=== PATIENT | female | born 1950 | race Caucasian/White ===

== ENCOUNTER → 2017-02-23 | Outpatient (CLI) | payer MEDICARE, BC ==
[~2017-02-23] MED LIST: AMIT25TA2 PO; ANTIANXIETY MED; AVAP150T PO; CALCCHW12 PO; CLAR5CHW PO; MULTIVIT PO; SERT25TA PO; SUMA125TA PO; SYNT75TA PO; ZOMIG; amitriptyline
--- NOTE | 2017-02-23 14:02 | REPMRS ---
Patient History The patient states she had a clinical breast exam in 01/2017. Patient is postmenopausal. Family history of colorectal cancer in father at age 50 or over, breast cancer in maternal aunt at age 50 or over, colorectal cancer in maternal grandmother at age 50 or over, and breast cancer in maternal cousin under age 50. Digital Woman Screen Mammo: February 23, 2017 - Exam #: [id number] Bilateral CC and MLO view(s) were taken. Technologist: Negrita Gil, Technologist Prior study comparison: February 12, 2015, digital woman screen mammo performed at [facility]. August 24, 2012, bilateral digital mammo screening bilat, performed at [facility]. FINDINGS: There are scattered fibroglandular densities. There has been no change in the appearance of the mammogram from the prior studies. There is a mild amount of residual fibroglandular tissue which is fairly symmetric. There is no interval development of dominant mass, architectural distortion, or clustered microcalcification suggestive of malignancy. ASSESSMENT: BI-RADS/ACR category 1 mammogram. Negative. Recommendation Routine screening mammogram in 1 year (for women over age 40). This mammogram was interpreted with the aid of an FDA-approved computer-aided dectection system. Electronically Signed By: Ervin Morocho MD 02/23/17 [id number]
== END ==
LOC: M WHC 12:58
PROVIDERS: ATTEND Nurse Practitioner Family
DX: Z12.31 Encounter for screening mammogram for malignant neoplasm of breast (principal)

== ENCOUNTER → 2017-10-17 | Outpatient (CLI) | payer MEDICARE, BC ==
--- NOTE | 2017-10-17 12:42 | REP ---
PA and lateral chest: Comparison is 01/17/2016. There are small stable parenchymal scar in the left costophrenic angle, unchanged. The lung byrnes otherwise clear. Cardiac size is normal. The pato, mediastinum, bony thorax are unchanged and unremarkable for patient age. Impression: No acute cardiopulmonary findings. Small stable parenchymal scars in the left costophrenic angle. Signed by Ervin العراقي MD 10/17/2017 12:34 P
--- NOTE | 2017-10-17 12:42 | REP ---
Left clavicle two views : There is no fracture or dislocation. Mineralization and joint spaces are normal. There are no calcifications or foreign bodies. Impression: Negative left clavicle . Signed by Ervin العراقي MD 10/17/2017 12:34 P
[2017-10-17 18:10] LABS: BASO # 0.1 10^3/uL (0.0-0.2); BASO % 0.9 % (0.0-1.0); EOS # 0.1 10^3/uL (0.0-0.50); EOS % 1.5 % (0.0-3.0); IMMATURE GRANULOCYTE % 0.2 % (0-0); LYMPH # 2.1 10^3/uL (1.5-4.5); MEAN CORPUSCULAR HEMOGLOBIN 33.1 pg (27.0-33.0); MEAN CORPUSCULAR HGB CONC 33.3 g/dl (32.0-36.5); MEAN CORPUSCULAR VOLUME 99.3 fl (80.0-96.0); MONO # 0.6 10^3/uL (0.0-0.8); MONO % 10.4 % (0.0-5.0); NEUTROPHILS # 3.1 10^3/uL (1.8-7.7); PLATELET COUNT, AUTOMATED 291 10^3/uL (150-450); RED CELL DISTRIBUTION WIDTH 12.1 % (11.5-14.5); WHITE BLOOD COUNT 5.9 10^3/uL (4.0-10.0)
[2017-10-17 18:52] LABS: ERYTHROCYTE SEDIMENTATION RATE 7 mm/hr (0-30)
== END ==
LOC: M WUC 11:39
PROVIDERS: ATTEND Physician Assistant
DX: M25.512 Pain in left shoulder (principal); R07.1 Chest pain on breathing

== ENCOUNTER → 2018-06-24 | Outpatient (CLI) | payer MEDICARE, BC | LOC: M WHC 10:33 | DX: Z12.31 Encounter for screening mammogram for malignant neoplasm of breast (principal); Z78.0 Asymptomatic menopausal state; Z80.0 Family history of malignant neoplasm of digestive organs; Z12.4 Encounter for screening for malignant neoplasm of cervix; N95.2 Postmenopausal atrophic vaginitis | CPT/HCPCS: 77067; G0123 ==

== ENCOUNTER → 2018-06-24 | Outpatient (REF) | payer MEDICARE, BC | LOC: M SFHCWAGY 10:55 | DX: Z12.4 Encounter for screening for malignant neoplasm of cervix (principal); N95.2 Postmenopausal atrophic vaginitis | CPT/HCPCS: G0123 ==

== ENCOUNTER 2018-06-29 07:45 | Emergency (ER) | payer MEDICARE, BC | END 2018-06-29 10:00 | disposition home or self-care (01) | LOC: M ED 07:45 | DX: M25.522 Pain in left elbow (principal); M85.832 Other specified disorders of bone density and structure, left forearm; W01.0XXA Fall on same level from slipping, tripping and stumbling without subsequent striking against object, initial encounter; Y92.098 Other place in other non-institutional residence as the place of occurrence of the external cause; I10 Essential (primary) hypertension; E78.5 Hyperlipidemia, unspecified; E03.9 Hypothyroidism, unspecified; F41.9 Anxiety disorder, unspecified; F32.9 Major depressive disorder, single episode, unspecified; G43.909 Migraine, unspecified, not intractable, without status migrainosus; Z88.8 Allergy status to other drugs, medicaments and biological substances; Z88.5 Allergy status to narcotic agent; Z88.0 Allergy status to penicillin; Z79.899 Other long term (current) drug therapy | CPT/HCPCS: 73030 ==

== ENCOUNTER → 2019-06-26 | Outpatient (CLI) | payer MEDICARE, BC ==
[~2019-06-26] MED LIST changes: +ATOR1TAB19; +DICL75TA PO; +IBUP-354; +LOSA50TA88 PO; -SERT25TA PO; +SERT25TA85 PO; +SUMA20SP
--- NOTE | 2019-06-27 12:11 | REP ---
BILATERAL SCREENING DIGITAL MAMMOGRAM WITH 3D TOMOSYNTHESIS: There are no palpable abnormalities or other breast complaints. The the patient states she had a clinical breast examination June,. The the patient states she performs self-breast examinations zero times per year. The Tyrer-Cuzick Score is: 5.9% . Comparison is 02/12/2015. There are scattered areas of fibroglandular density. There is no dominant mass, micro calcific cluster or architectural distortion that would indicate malignancy. There are no additional findings on 3D tomosynthesiss. There is no change from the prior study. Impression: BIRADS/ACR category 1 mammogram. Negative. Recommendation: Routine annual screening mammography. This mammogram was interpreted with the aid of a FDA approved computer-aided detection system. A. Negative mammogram reports should not delay biopsy if a dominant or clinically suspicious mass is present. B. Not all breast cancers are identified by mammography or tomosynthesis. C. Adenosis and dense breasts may obscure an underlying neoplasm. Patient letter M1. Electronically Signed by Ervin العراقي MD 06/26/2019 11:29 A
== END ==
LOC: M WHC 10:14
PROVIDERS: ATTEND Nurse Practitioner Family
DX: Z12.31 Encounter for screening mammogram for malignant neoplasm of breast (principal)
CPT/HCPCS: 77063; 77067; G0463

== ENCOUNTER → 2019-07-17 | Outpatient (CLI) | payer MEDICARE, BC ==
--- NOTE | 2019-07-18 14:12 | DEXA ---
AP SPINE L1 - L4 0.898 -2.3 -0.7 LT FEMUR TOTAL 0.696 -2.5 -1.0 LT NECK 0.649 -2.8 -1.1 RT FEMUR TOTAL 0.683 -2.6 -1.1 RT NECK 0.627 -3.0 -1.2 TOTAL BODY TOTAL OTHER COMMENTS: There is low bone density of the spine. There is osteoporosis of the hips. The decreased density of the spine does represent a significant change. The decreased density of the left hip does represent a significant change. The decreased density of the right hip does represent a significant change. The density of the spine has decreased 14.0% since the initial exam on 03/15/2003. The spine density has decreased 13.0% since the most recent exam on 08/15/2007. The density of the left hip has decreased 14.6% since the initial exam on 03/15/2003. The density of the left hip has decreased 15.3% since the most recent exam on 08/15/2007. The density of the right hip has decreased 16.6% since the initial exam on 03/15/2003. The density of the right hip has decreased 16.0% since the most recent exam on 08/15/2007. FOLLOW-UP: Recommendation for the next bone density exam: 2 years. SHAHLA
== END ==
LOC: M WHC 09:39
PROVIDERS: ATTEND Nurse Practitioner Family
DX: M81.0 Age-related osteoporosis without current pathological fracture (principal)

== ENCOUNTER 2020-05-28 08:35 | Day surgery (SDC) | payer MEDICARE, BC ==
[~2020-05-28] VITALS: Ht 147.3 cm; Wt 47.6 kg
[~2020-05-28 08:35] MED LIST changes: +ALIG4CAP PO; +AMIT75TA PO; +ASPI81TA86 PO; -ATOR1TAB19; +ATOR1TAB19 PO; +BIOT1CAP2 PO; +LEVO75TA4 PO; +MULTCAP PO; +RA B1TAB8 PO; +SUMA25TA3 PO
[2020-05-28] MEDS ORDERED: propofoL 200 MG/20 ML VIAL As Ordered ONE (09:30)
[2020-05-28] MEDS ORDERED: LIDOCAINE 2% 100MG/5ML SDV (FOR ANES.) As Ordered ONE (09:30)
--- NOTE | 2020-07-10 11:31 | ROOR ---
Patient Name: Angelita Goodman Procedure Date: 05/28/2020 9:13 AM Date of : 1950 Age: 69 Room: [facility] Gender: Female Note Status: Finalized Procedure: Colonoscopy Indications: High risk colon cancer surveillance: Personal history of colonic polyps, Family history of colon cancer Providers: Cam TSE MD Referring MD: DEEPTHI BURNS DO Requesting Provider: Medicines: Monitored Anesthesia Care Complications: No immediate complications. Procedure: Pre-Anesthesia Assessment: - The heart rate, respiratory rate, oxygen saturations, blood pressure, adequacy of pulmonary ventilation, and response to care were monitored throughout the procedure. The Colonoscope was introduced through the anus and advanced to the terminal ileum, with identification of the appendiceal orifice and IC valve. The colonoscopy was performed without difficulty. The patient tolerated the procedure well. The quality of the bowel preparation was good. Findings: The perianal and digital rectal examinations were normal. The entire examined colon appeared normal on direct and retroflexion views. Small Internal Hemorrhoids. Impression: - The entire examined colon is normal on direct and retroflexion views. - Small Internal Hemorrhoids. - No specimens collected. Recommendation: - Repeat colonoscopy in 5 years for screening purposes. Cam Tse MD Cam TSE MD 05/28/2020 9:33:01 AM Number of Addenda: 0 Note Initiated On: 05/28/2020 9:13 AM Estimated Blood Loss: Estimated blood loss: none.
== END 2020-05-28 10:00 | disposition home or self-care (01) ==
LOC: M OPP 08:35
PROVIDERS: ATTEND Internal Medicine Gastroenterology
DX: Z12.11 Encounter for screening for malignant neoplasm of colon (principal); Z86.010 Personal history of colon polyps; Z80.0 Family history of malignant neoplasm of digestive organs; K64.8 Other hemorrhoids; Z79.82 Long term (current) use of aspirin; Z79.899 Other long term (current) drug therapy; Z88.0 Allergy status to penicillin; Z88.5 Allergy status to narcotic agent; Z91.030 Bee allergy status

== ENCOUNTER → 2022-08-27 | Outpatient (CLI) | payer MEDICARE, BC ==
[~2022-08-27] MED LIST changes: +LOSA50TA28 PO; -LOSA50TA88 PO; -SUMA20SP; +SUMA20SP4
[2022-08-27 18:21] LABS: FREE THYROXINE INDEX 2.8 % (1.3-4.8); THYROID STIMULATING HORMONE 2.56 uIU/ML (0.358-3.740); THYROXINE (T4) 8.1 UG/DL (4.5-12.0)
[2022-08-29 16:08] LABS: EBV VIRAL CAPSID AG IgM <36.0 U/mL (0.0-35.9)
== END ==
LOC: M WUC 15:05
PROVIDERS: ATTEND Physician Assistant
DX: R53.83 Other fatigue (principal); E03.9 Hypothyroidism, unspecified; Z79.890 Hormone replacement therapy

== ENCOUNTER → 2023-09-22 | Outpatient (CLI) | payer MEDICARE, BC | LOC: M WHC 13:11 | PROVIDERS: ATTEND Family Medicine | DX: Z12.31 Encounter for screening mammogram for malignant neoplasm of breast (principal) ==

== ENCOUNTER → 2023-12-28 | Outpatient (CLI) | payer MEDICARE, BC | LOC: M WUC 09:16 | PROVIDERS: ATTEND Physician Assistant | DX: M25.551 Pain in right hip (principal) ==

== ENCOUNTER → 2024-01-24 | Outpatient (CLI) | payer MEDICARE, BC ==
[~2024-01-24] MED LIST changes: +BUSP10TA PO; +DRAM50TA9 PO; +FLUO40CA PO; +MECL-136 PO; +MELO15TA28 PO; +OMEP40CA5 PO; +THERTAB52 PO
[2024-01-24 11:21] LABS: HEMATOCRIT 42.6 % (36.0-47.0); HEMOGLOBIN 14.6 g/dl (12.0-15.5); MEAN CORPUSCULAR HEMOGLOBIN 34.5 pg (27.0-33.0); MEAN CORPUSCULAR HGB CONC 34.3 g/dl (32.0-36.5); MEAN CORPUSCULAR VOLUME 100.7 fl (80.0-96.0); PLATELET COUNT, AUTOMATED 274 10^3/uL (150-450); RED BLOOD COUNT 4.23 10^6/uL (4.00-5.40); WHITE BLOOD COUNT 11.8 10^3/uL (4.0-10.0)
[2024-01-24 11:52] LABS: BLOOD UREA NITROGEN 25 MG/DL (9-23); CALCIUM LEVEL 9.2 MG/DL (8.3-10.6); CARBON DIOXIDE LEVEL 29 MMOL/L (20-31); CHLORIDE LEVEL 102 MMOL/L (98-107); CREATININE FOR GFR 0.74 MG/DL (0.55-1.30); GLOMERULAR FILTRATION RATE > 60.0 (>39); GLUCOSE, FASTING 94 MG/DL (74-106); POTASSIUM SERUM 4.1 MMOL/L (3.5-5.1); SODIUM LEVEL 136 MMOL/L (136-145)
== END ==
LOC: M LAB 10:40
PROVIDERS: ATTEND Podiatrist Foot & Ankle Surgery
DX: M20.11 Hallux valgus (acquired), right foot (principal); Z79.899 Other long term (current) drug therapy

== ENCOUNTER 2024-01-26 09:04 | Day surgery (SDC) | payer MEDICARE, BC ==
[~2024-01-26] VITALS: Ht 147.3 cm; Wt 47.3 kg
[~2024-01-26 09:04] MED LIST changes: -DRAM50TA9 PO
[2024-01-26] MEDS ORDERED: LR 1,000 ML IV SCH (09:10)
[2024-01-26] MEDS ORDERED: LIDOCAINE 2% 100MG/5ML SDV (FOR ANES.) As Ordered ONE (09:48)
[2024-01-26] MEDS ORDERED: propofoL 200 MG/20 ML VIAL As Ordered ONE (09:48)
[2024-01-26] MEDS ORDERED: ONDANSETRON 4MG 2ML VIAL As Ordered ONE (09:48)
[2024-01-26] MEDS ORDERED: KETOROLAC 60MG 2ML VIAL As Ordered ONE (09:48)
[2024-01-26] MEDS ORDERED: MIDAZOLAM INJ 2MG/2ML VIAL As Ordered ONE (09:53)
[2024-01-26] MEDS ORDERED: fentaNYL 100 MCG/2 ML INJECTION As Ordered ONE (09:53)
[2024-01-26] MEDS ORDERED: DRAM50TA9 PO (10:00)
[2024-01-26] MEDS: ceFAZolin SOD 2 GM in IV 1 EA IV ONE (10:43)
[2024-01-26] MEDS ORDERED: ACETAMINOPHEN 1000MG 100ML IV BAG As Ordered ONE (10:44)
[2024-01-26] MEDS: LIDOCAINE 1% SDV 30ML VIAL As Ordered ONE (10:45)
[2024-01-26 11:48] VITALS: BP 145/79; TEMP 97.4; O2SAT 100
== END 2024-01-26 12:25 | disposition home or self-care (01) ==
LOC: M SDC 09:04
PROVIDERS: ATTEND Podiatrist Foot & Ankle Surgery
DX: M20.11 Hallux valgus (acquired), right foot (principal); E03.9 Hypothyroidism, unspecified; I10 Essential (primary) hypertension; E78.00 Pure hypercholesterolemia, unspecified; G43.909 Migraine, unspecified, not intractable, without status migrainosus; Z79.899 Other long term (current) drug therapy; Z79.890 Hormone replacement therapy; Z88.5 Allergy status to narcotic agent; Z88.1 Allergy status to other antibiotic agents; Z79.1 Long term (current) use of non-steroidal anti-inflammatories (NSAID); K21.9 Gastro-esophageal reflux disease without esophagitis
CPT/HCPCS: 28298; 97116; 97530; C1713; J0131; J0665; J0690; J1100; J1885; J2250; J2405; J3010

== ENCOUNTER 2024-01-31 11:00 | Emergency (ER) | payer MEDICARE, BC ==
[~2024-01-31] VITALS: Ht 147.3 cm; Wt 47.7 kg
[~2024-01-31 11:00] MED LIST changes: +DRAM50TA9 PO
[2024-01-31] MEDS ORDERED: LEVO50CA PO (11:16)
[2024-01-31] MEDS ORDERED: LOSA25TA13 PO (11:16)
[2024-01-31] MEDS ORDERED: HYDR-3713 PO (11:16)
[2024-01-31] MEDS: PERCOCET 5MG/325MG TAB PO ONE (15:29)
[2024-01-31 15:36] VITALS: O2SAT 95
[2024-01-31] MEDS ORDERED: PERC5TAB12 PO (16:32)
[2024-01-31 16:43] VITALS: O2SAT 92
[2024-01-31 16:54] VITALS: BP 150/82; TEMP 98.2
== END 2024-01-31 17:04 | disposition home or self-care (01) ==
LOC: EDBD 11:00 → M ED 12:45
DX: S32.010A Wedge compression fracture of first lumbar vertebra, initial encounter for closed fracture (principal); M51.36 Other intervertebral disc degeneration, lumbar region; M25.78 Osteophyte, vertebrae; M50.322 Other cervical disc degeneration at C5-C6 level; M50.323 Other cervical disc degeneration at C6-C7 level; W01.0XXA Fall on same level from slipping, tripping and stumbling without subsequent striking against object, initial encounter; I10 Essential (primary) hypertension; K21.9 Gastro-esophageal reflux disease without esophagitis; E03.9 Hypothyroidism, unspecified; Y92.002 Bathroom of unspecified non-institutional (private) residence as the place of occurrence of the external cause; Y93.9 Activity, unspecified; Y99.9 Unspecified external cause status; Z88.0 Allergy status to penicillin; Z88.5 Allergy status to narcotic agent; Z79.811 Long term (current) use of aromatase inhibitors; Z79.83 Long term (current) use of bisphosphonates; Z79.899 Other long term (current) drug therapy

== ENCOUNTER 2024-11-02 00:25 | Inpatient (IN) | payer MEDICARE, BC ==
[2024-11-02] VITALS (7 sets, daily range): BP systolic 131–184; BP diastolic 75–91; TEMP 97.5–100.1; O2SAT 90–98
[~2024-11-02] VITALS: Ht 147.3 cm; Wt 47.7 kg
[~2024-11-02 00:25] MED LIST changes: -ALIG4CAP PO; +ALIG4CAP3 PO; +HYDR-3713 PO; +LEVO50CA PO; +LOSA25TA13 PO; +PERC5TAB12 PO
[2024-11-02] MEDS: ONDANSETRON 4MG 2ML VIAL IV ONE ×2 (02:17→02:55)
[2024-11-02] MEDS: MORPHINE 4 MG/ML 1ML VIAL IV ONE (02:18)
[2024-11-02] MEDS: MORPHINE 4 MG/ML 1ML VIAL IV PRN (03:20)
[2024-11-02 03:37] LABS: BASO % 0.3 % (0.0-1.0); EOS % 0.3 % (0.0-3.0); HEMATOCRIT 37.8 % (36.0-47.0); HEMOGLOBIN 13.2 g/dl (12.0-15.5); LYMPH # 0.8 10^3/uL (1.5-5.0); LYMPH % 6.9 % (24.0-44.0); MEAN CORPUSCULAR HEMOGLOBIN 34.5 pg (27.0-33.0); MEAN CORPUSCULAR HGB CONC 34.9 g/dl (32.0-36.5); MEAN CORPUSCULAR VOLUME 98.7 fl (80.0-96.0); MONO # 0.5 10^3/uL (0.0-0.8); MONO % 4.6 % (2.0-8.0); NEUTROPHILS # 9.5 10^3/uL (1.5-8.5); NEUTROPHILS % 87.4 % (36.0-66.0); PLATELET COUNT, AUTOMATED 223 10^3/uL (150-450); RED BLOOD COUNT 3.83 10^6/uL (4.00-5.40); WHITE BLOOD COUNT 10.8 10^3/uL (4.0-10.0)
[2024-11-02 03:50] LABS: INR 0.98; PARTIAL THROMBOPLASTIN TIME 27.7 SECONDS (24.8-34.2); PROTHROMBIN TIME 13.2 SECONDS (12.5-14.5)
[2024-11-02] MEDS ORDERED: ACETAMINOPHEN 325 MG TAB PO PRN (03:50)
[2024-11-02] MEDS ORDERED: NALOXONE INJ 0.4MG/1ML VIAL IV PRN (03:50)
[2024-11-02] MEDS ORDERED: METHOCARBAMOL 1,000 MG/10 ML VIAL IV PRN (03:50)
[2024-11-02] MEDS ORDERED: MOM 30ML SUSPENSION UDC PO PRN (03:50)
[2024-11-02] MEDS ORDERED: MAALOX 30 ML SUSP *UDC PO PRN (03:50)
[2024-11-02] MEDS ORDERED: AMIT25TA19 PO (04:00)
[2024-11-02] MEDS ORDERED: FLUTISP NARES (04:02)
[2024-11-02] MEDS ORDERED: CALCTAB41 PO (04:02)
[2024-11-02] MEDS ORDERED: LORazepam 2 MG TAB PO PRN (04:05)
[2024-11-02] MEDS ORDERED: HOME MED LIST COMPLETE! XX SCH (04:05)
[2024-11-02 04:28] LABS: ETHYL ALCOHOL (ETHANOL) < 0.003 % (0.000-0.010)
[2024-11-02 04:30] LABS: ALBUMIN 3.6 G/DL (3.2-5.2); ALKALINE PHOSPHATASE 91 U/L (35-104); ALT/SGPT 15 U/L (7.0-40); AST/SGOT 19 U/L (<34); BILIRUBIN,DIRECT 0.1 MG/DL (<0.4); BILIRUBIN,TOTAL 0.3 MG/DL (0.3-1.2); BLOOD UREA NITROGEN 12 MG/DL (9-23); CALCIUM LEVEL 8.8 MG/DL (8.3-10.6); CARBON DIOXIDE LEVEL 26 MMOL/L (20-31); CHLORIDE LEVEL 103 MMOL/L (98-107); CREATININE FOR GFR 0.69 MG/DL (0.55-1.30); GLOMERULAR FILTRATION RATE > 60.0 (>39); GLUCOSE, FASTING 142 MG/DL (74-106); MAGNESIUM LEVEL 1.5 MG/DL (1.8-2.4); POTASSIUM SERUM 4.3 MMOL/L (3.5-5.1); SODIUM LEVEL 135 MMOL/L (136-145); TOTAL PROTEIN 6.5 G/DL (5.7-8.2)
[2024-11-02] MEDS: MAG SULF 1GM/100ML (MAG RUN) 1 GM in IV 1 EA IV SCH (05:49)
[2024-11-02] MEDS: FOLIC ACID 1MG TAB PO SCH (08:35)
[2024-11-02] MEDS: DOCUSATE SODIUM 100MG CAPSULE PO SCH (08:35)
[2024-11-02] MEDS: MULTIVITAMINS/MINERALS THERAP 1 TAB PO SCH (08:35)
[2024-11-02] MEDS: THIAMINE 100 MG TAB PO SCH (08:35)
[2024-11-02] MEDS: ACETAMINOPHEN *IV* 500 MG in IV 1 EA IV PRN (09:18)
[2024-11-02] MEDS: MORPHINE 2 MG/ML 1ML VIAL IV PRN (09:49)
[2024-11-02] MEDS ORDERED: ONDANSETRON 4MG 2ML VIAL IV PRN (10:55)
[2024-11-02] MEDS: NS (Normal Saline) 0.9% 1,000 ML IV ONE (11:18)
[2024-11-02] MEDS: PANTOPRAZOLE 40MG VIAL IV SCH (11:18)
[2024-11-02] MEDS: KETOROLAC 30 MG/ML 1ML VIAL IV SCH (12:11)
[2024-11-03] VITALS (13 sets, daily range): BP systolic 131–162; BP diastolic 81–100; TEMP 96.6–97.7; O2SAT 93–96
[2024-11-03 06:40] LABS: HEMATOCRIT 39.6 % (36.0-47.0); HEMOGLOBIN 12.6 g/dl (12.0-15.5); MEAN CORPUSCULAR HEMOGLOBIN 34.3 pg (27.0-33.0); MEAN CORPUSCULAR HGB CONC 31.8 g/dl (32.0-36.5); MEAN CORPUSCULAR VOLUME 107.9 fl (80.0-96.0); PLATELET COUNT, AUTOMATED 187 10^3/uL (150-450); RED BLOOD COUNT 3.67 10^6/uL (4.00-5.40); WHITE BLOOD COUNT 6.9 10^3/uL (4.0-10.0)
[2024-11-03 06:46] LABS: ALKALINE PHOSPHATASE 77 U/L (35-104); ALT/SGPT 14 U/L (7.0-40); AST/SGOT 23 U/L (<34); BILIRUBIN,TOTAL 0.3 MG/DL (0.3-1.2); BLOOD UREA NITROGEN 15 MG/DL (9-23); CALCIUM LEVEL 8.5 MG/DL (8.3-10.6); CARBON DIOXIDE LEVEL 22 MMOL/L (20-31); CHLORIDE LEVEL 105 MMOL/L (98-107); CREATININE FOR GFR 0.68 MG/DL (0.55-1.30); GLOMERULAR FILTRATION RATE > 60.0 (>39); GLUCOSE, FASTING 97 MG/DL (74-106); POTASSIUM SERUM 4.1 MMOL/L (3.5-5.1); SODIUM LEVEL 138 MMOL/L (136-145); TOTAL PROTEIN 5.8 G/DL (5.7-8.2)
[2024-11-03] MEDS ORDERED: PREVNAR-20 VACCINE 0.5ML SYRINGE IM.IMMUN ONE (09:00)
[2024-11-03] MEDS ORDERED: LIDOCAINE 2% 100MG/5ML SDV (FOR ANES.) As Ordered ONE (11:41)
[2024-11-03] MEDS ORDERED: propofoL 200 MG/20 ML VIAL As Ordered ONE (11:41)
[2024-11-03] MEDS ORDERED: fentaNYL 100 MCG/2 ML INJECTION As Ordered ONE (12:05)
[2024-11-03] MEDS ORDERED: MIDAZOLAM INJ 2MG/2ML VIAL As Ordered ONE (12:05)
[2024-11-03] MEDS: ceFAZolin 1GM VIAL As Ordered ONE (12:50)
[2024-11-03] MEDS ORDERED: ACETAMINOPHEN 1000MG/100ML IV BAG As Ordered ONE (13:10)
[2024-11-03] MEDS: TRANEXAMIC ACID 100 MG/ML 10ML VIAL As Ordered ONE (13:15)
[2024-11-03] MEDS ORDERED: ONDANSETRON 4MG 2ML VIAL As Ordered ONE (13:21)
[2024-11-03] MEDS ORDERED: HYDROmorphone HCL 2MG/ML 1ML VIAL As Ordered ONE (14:24)
[2024-11-03] MEDS ORDERED: oxyCODONE 5MG TAB PO PRN (14:50)
[2024-11-03] MEDS ORDERED: fentaNYL 100 MCG/2 ML INJECTION IV PRN (14:50)
[2024-11-03] MEDS ORDERED: ONDANSETRON 4MG 2ML VIAL IV PRN (14:50)
[2024-11-03] MEDS ORDERED: MEPERIDINE 25 MG/ML 1ML VIAL IV PRN (14:50)
[2024-11-03] MEDS ORDERED: HYDROMORPHONE HCL 0.5 MG/ 0.5 ML SYRINGE IV PRN (14:50)
[2024-11-03] MEDS ORDERED: SENNA 8.6 MG TAB (SENOKOT) PO PRN (14:55)
[2024-11-03] MEDS: ceFAZolin SOD 2 GM in IV 1 EA IV SCH (20:05)
[2024-11-04] VITALS (7 sets, daily range): BP systolic 112–142; BP diastolic 72–85; TEMP 97–97.5; O2SAT 94–97
[2024-11-04] MEDS: ACETAMINOPHEN 500 MG TAB PO SCH (09:17)
[2024-11-04] MEDS: FERROUS SULFATE 325MG TAB PO SCH (09:18)
[2024-11-04] MEDS: ASCORBIC ACID 500 MG TAB PO SCH (09:20)
[2024-11-04] MEDS: PANTOPRAZOLE 40MG TAB (PROTONIX) PO SCH (10:14)
[2024-11-04] MEDS: oxyCODONE 5MG TAB PO PRN (10:14)
[2024-11-04] MEDS: SENNA 8.6 MG TAB (SENOKOT) PO SCH (10:15)
[2024-11-04] MEDS ORDERED: PREVNAR-20 VACCINE 0.5ML SYRINGE IM.IMMUN ONE (12:00)
[2024-11-04] MEDS: ASPIRIN 81MG ENTERIC TABLET PO SCH (20:15)
[2024-11-04] MEDS: AMITRIPTYLINE 25MG TABLET PO SCH (20:15)
[2024-11-05 04:33] VITALS: BP 110/73; TEMP 97.2; O2SAT 95
[2024-11-05] MEDS: LEVOTHYROXINE 50MCG TABLET (0.05MG) PO SCH (05:08)
[2024-11-05 06:32] VITALS: BP 110/73
[2024-11-05 08:00] VITALS: BP 114/74; TEMP 97.2; O2SAT 97
[2024-11-05] MEDS: LOSARTAN 25 MG TAB PO SCH (09:00)
[2024-11-05] MEDS: FLUoxetine 20MG CAP PO SCH (09:12)
[2024-11-05 12:00] VITALS: BP 127/73; TEMP 97.3; O2SAT 98
[2024-11-05 16:00] VITALS: BP 130/75; TEMP 97.3; O2SAT 96
[2024-11-05 21:38] VITALS: BP 142/85; TEMP 97.4; O2SAT 94
[2024-11-06 04:16] VITALS: BP 152/94; TEMP 97.2; O2SAT 96
[2024-11-06 09:00] VITALS: BP 115/65
[2024-11-06 09:42] LABS: BASO % 0.4 % (0.0-1.0); EOS # 0.2 10^3/uL (0.0-0.5); EOS % 2.6 % (0.0-3.0); HEMATOCRIT 31.1 % (36.0-47.0); HEMOGLOBIN 10.4 g/dl (12.0-15.5); LYMPH # 1.6 10^3/uL (1.5-5.0); MEAN CORPUSCULAR HEMOGLOBIN 33.5 pg (27.0-33.0); MEAN CORPUSCULAR HGB CONC 33.4 g/dl (32.0-36.5); MEAN CORPUSCULAR VOLUME 100.3 fl (80.0-96.0); MONO # 0.4 10^3/uL (0.0-0.8); MONO % 4.7 % (2.0-8.0); NEUTROPHILS # 6.1 10^3/uL (1.5-8.5); NEUTROPHILS % 73.1 % (36.0-66.0); PLATELET COUNT, AUTOMATED 289 10^3/uL (150-450); WHITE BLOOD COUNT 8.3 10^3/uL (4.0-10.0)
[2024-11-06 10:13] LABS: BLOOD UREA NITROGEN 14 MG/DL (9-23); CARBON DIOXIDE LEVEL 30 MMOL/L (20-31); CHLORIDE LEVEL 106 MMOL/L (98-107); CREATININE FOR GFR 0.65 MG/DL (0.55-1.30); GLOMERULAR FILTRATION RATE > 60.0 (>39); GLUCOSE, FASTING 94 MG/DL (74-106); POTASSIUM SERUM 4.3 MMOL/L (3.5-5.1); SODIUM LEVEL 142 MMOL/L (136-145)
[2024-11-06 11:57] VITALS: BP 129/81; TEMP 97.3; O2SAT 97
[2024-11-06] MEDS ORDERED: ASCO50TA PO (12:50)
[2024-11-06] MEDS ORDERED: SENO8.6T5 PO (12:50)
[2024-11-06] MEDS ORDERED: IBUP1TAB6 PO (12:50)
[2024-11-06] MEDS ORDERED: OXYC-517 PO (12:50)
[2024-11-06] MEDS ORDERED: ASPI81TAEC PO (12:50)
[2024-11-06] MEDS ORDERED: FERR1TAB8 PO (12:50)
[2024-11-06] MEDS ORDERED: ACET-683 PO (12:50)
[2024-11-06] MEDS ORDERED: COLA100C5 PO (12:50)
[2024-11-06] MEDS ORDERED: PREVNAR-20 VACCINE 0.5ML SYRINGE IM.IMMUN ONE (16:00)
== END 2024-11-06 15:35 | disposition home health service (06) | DRG 482 ==
LOC: M ED 00:25 → M ED INP 03:47 → M MS5PR 14:03
PROVIDERS: ADMIT Student in an Organized Health Care Education/Training Program; ATTEND Internal Medicine Nephrology
PROC: 0QS734Z Reposition Left Upper Femur with Internal Fixation Device, Percutaneous Approach (ICD-10-PCS; principal; 2024-11-03 13:00)
DX: S72.142A Displaced intertrochanteric fracture of left femur, initial encounter for closed fracture (principal); E03.9 Hypothyroidism, unspecified; I10 Essential (primary) hypertension; E78.5 Hyperlipidemia, unspecified; K21.9 Gastro-esophageal reflux disease without esophagitis; B97.4 Respiratory syncytial virus as the cause of diseases classified elsewhere; G43.909 Migraine, unspecified, not intractable, without status migrainosus; F41.9 Anxiety disorder, unspecified; F32.A Depression, unspecified; K64.8 Other hemorrhoids; W18.30XA Fall on same level, unspecified, initial encounter; Y92.009 Unspecified place in unspecified non-institutional (private) residence as the place of occurrence of the external cause; E83.42 Hypomagnesemia; Z88.0 Allergy status to penicillin; Z88.5 Allergy status to narcotic agent; Z79.899 Other long term (current) drug therapy; Z79.82 Long term (current) use of aspirin; Z79.890 Hormone replacement therapy; F10.20 Alcohol dependence, uncomplicated

== ENCOUNTER → 2024-11-17 | Outpatient (CLI) | payer MEDICARE, BC ==
[~2024-11-17] MED LIST changes: +ACET-683 PO; +AMIT25TA19 PO; +ASCO50TA PO; +ASPI81TAEC PO; +CALCTAB41 PO; +COLA100C5 PO; +FERR1TAB8 PO; +FLUTISP NARES; +IBUP1TAB6 PO; +OXYC-517 PO; +SENO8.6T5 PO
== END ==
LOC: M SOG 07:54
PROVIDERS: ATTEND Orthopaedic Surgery
DX: S72.142A Displaced intertrochanteric fracture of left femur, initial encounter for closed fracture (principal); Z47.89 Encounter for other orthopedic aftercare; M16.0 Bilateral primary osteoarthritis of hip

== ENCOUNTER → 2024-12-19 | Outpatient (CLI) | payer MEDICARE, BC | LOC: M SOG 07:51 | PROVIDERS: ATTEND Orthopaedic Surgery | DX: S72.142D Displaced intertrochanteric fracture of left femur, subsequent encounter for closed fracture with routine healing (principal) ==

== ENCOUNTER 2024-12-26 12:15 | Outpatient (RCR) | payer MEDICARE, BC | END 2024-12-29 | LOC: M PT 12:15 | PROVIDERS: ATTEND Orthopaedic Surgery | DX: S72.142D Displaced intertrochanteric fracture of left femur, subsequent encounter for closed fracture with routine healing (principal) ==

== ENCOUNTER 2025-01-25 10:30 | Outpatient (RCR) | payer MEDICARE, BC | END 2025-01-29 | LOC: M PT 10:30 | PROVIDERS: ATTEND Orthopaedic Surgery | DX: S72.142D Displaced intertrochanteric fracture of left femur, subsequent encounter for closed fracture with routine healing (principal) ==

== ENCOUNTER 2025-02-15 10:45 | Outpatient (RCR) | payer MEDICARE, BC ==
[~2025-02-15 10:45] MED LIST changes: -LEVO50CA PO; +LEVO50CA2 PO
== END 2025-02-28 ==
LOC: M PT 10:45
PROVIDERS: ATTEND Orthopaedic Surgery
DX: S72.142D Displaced intertrochanteric fracture of left femur, subsequent encounter for closed fracture with routine healing (principal)

== ENCOUNTER → 2025-03-19 | Outpatient (CLI) | payer MEDICARE, BC | LOC: M SOG 07:10 | PROVIDERS: ATTEND Orthopaedic Surgery | DX: S72.142D Displaced intertrochanteric fracture of left femur, subsequent encounter for closed fracture with routine healing (principal) ==

== ENCOUNTER → 2025-03-20 | Outpatient (CLI) | payer MEDICARE, BC | LOC: M SOG 06:54 | PROVIDERS: ATTEND Orthopaedic Surgery | DX: S72.142D Displaced intertrochanteric fracture of left femur, subsequent encounter for closed fracture with routine healing (principal) ==

== ENCOUNTER → 2025-06-15 | Outpatient (CLI) | payer MEDICARE, BC ==
[~2025-06-15] MED LIST changes: +SENN-225 PO; -SENO8.6T5 PO
[2025-06-15 15:41] LABS: PLATELET COUNT, AUTOMATED 365 10^3/uL (150-450)
[2025-06-15 16:10] LABS: ALT/SGPT 23.0 U/L (7.0-40); AST/SGOT 24.0 U/L (<34); CALCIUM LEVEL 9.6 MG/DL (8.3-10.6); CARBON DIOXIDE LEVEL 30.0 MMOL/L (20-31); CHLORIDE LEVEL 102.0 MMOL/L (98-107); CHOLESTEROL LEVEL 157.0 MG/DL (<200); CHOLESTEROL RISK RATIO 2.38 (<5); CREATININE FOR GFR 0.82 MG/DL (0.55-1.30); GLOMERULAR FILTRATION RATE 74.1 (>39); LDL CHOLESTEROL 76.1 MG/DL (<100); NON-HDL-C 91.3 MG/DL; POTASSIUM SERUM 4.6 MMOL/L (3.5-5.1); SODIUM LEVEL 141.0 MMOL/L (136-145); TRIGLYCERIDES LEVEL 76.0 MG/DL (<150)
== END ==
LOC: M WUC 11:48
PROVIDERS: ATTEND Family Medicine
DX: I10 Essential (primary) hypertension (principal); E78.5 Hyperlipidemia, unspecified; E03.9 Hypothyroidism, unspecified

== ENCOUNTER → 2025-08-04 | Outpatient (CLI) | payer MEDICARE, BC ==
[~2025-08-04] MED LIST changes: -IBUP1TAB6 PO; +SFHIBU600 PO
== END ==
LOC: M RAD 14:34
PROVIDERS: ATTEND Student in an Organized Health Care Education/Training Program
DX: R05.9 Cough, unspecified (principal)